=== PATIENT | male | born 1955 | race Caucasian/White ===

== ENCOUNTER 2018-01-06 06:01 | Day surgery (SDC) | payer OTHER ==
[~2018-01-06] VITALS: Ht 200.7 cm; Wt 92.9 kg
[2018-01-06] VITALS (8 sets, daily range): BP systolic 106–131; BP diastolic 57–73; PULSE 43–93; TEMP 97.2–97.4
[~2018-01-06 06:01] MED LIST: GREEN TEA PO; LUTEIN20 M1 PO; MASON NATURAL1200 MG PO; MASON NATURAL2000 IU PO
== END 2018-01-06 12:30 | disposition home or self-care (01) ==
LOC: SDCO 06:01
DX: K40.20 Bilateral inguinal hernia, without obstruction or gangrene, not specified as recurrent (principal); M17.0 Bilateral primary osteoarthritis of knee; Z90.49 Acquired absence of other specified parts of digestive tract; Z85.828 Personal history of other malignant neoplasm of skin; Z80.0 Family history of malignant neoplasm of digestive organs; Z80.3 Family history of malignant neoplasm of breast; Z80.6 Family history of leukemia
CPT/HCPCS: C1781; J1885; J2405; J2704; J3010; J7120